=== PATIENT | female | born 1965 | race Caucasian/White ===

== ENCOUNTER 2024-07-02 08:02 | Outpatient (RCR) | payer OTHER, SELFPAY ==
[2024-07-02 08:11] VITALS: BMI 31.4
== END 2024-09-20 08:30 | disposition home or self-care (01) ==
LOC: ANHDMC 08:02
PROVIDERS: PCP Family Medicine; Visit Provider Family Medicine
DX: I10 Essential (primary) hypertension (principal); Z71.3 Dietary counseling and surveillance
CPT/HCPCS: 97802

== ENCOUNTER 2024-12-17 08:32 | Outpatient (CLI) | payer OTHER, SELFPAY ==
--- NOTE | 2024-12-17 09:00 | ECHO_ITS ---
Patient Info Name: Yuly Gonzalez Age: 59 years : 1965 Gender: Female Ht: 66 in Wt: 179 lbs BSA: 1.97 m2 HR: 97 bpm BP: 193 / 104 mmHg Technical Quality: Good Exam Date: 12/17/2024 9:03 AM Exam Location: Echo Lab Patient Status: Outpatient Admit Date: 12/17/2024 Staff Ordering Physician: Jovanna Huitron DO Retail Advertising Sales Manager: Iris Underwood RDCS Attending Provider: Jvoanna Huitron DO Referring Physician: Tomy MULLER; Exam Type: CA echo doppler color flow Study Info Indications R01.1 - Cardiac murmur, unspecified Complete two-dimensional, color flow and Doppler transthoracic echocardiogram is performed. Summary 1. Complete two-dimensional, color flow and Doppler transthoracic echocardiogram is performed. 2. Left ventricular chamber dimension is normal. 3. Left ventricular systolic function is hyperdynamic, estimated at >70%. 4. The left ventricular diastolic function is abnormal. 5. E/e' 10 is mildly elevated. 6. Right atrial chamber dimension is mildly enlarged. 7. There is trace tricuspid valve regurgitation. 8. Moderate pulmonary hypertension, estimated pulmonary arterial systolic pressure is 56 mmHg. 9. Dilated inferior vena cava with >50% collapse upon inspiration consistent with elevated right atrial pressure, 10 mmHg. Left Ventricle E/e' 10 is mildly elevated. Left ventricular chamber dimension is normal. Left ventricular systolic function is hyperdynamic, estimated at >70%. The left ventricular diastolic function is abnormal. Right Ventricle Right ventricular systolic function is normal and with normal TAPSE 2.6 cm. Right ventricular chamber dimension is normal. Left Atria Left atrial chamber dimension is normal. Right Atria Right atrial chamber dimension is mildly enlarged. Aortic Valve The aortic valve is trileaflet. There is no aortic valve stenosis. There is no aortic valve regurgitation. Pulmonic Valve There is no pulmonic regurgitation. Mitral Valve There is no mitral valve stenosis. There is no mitral valve regurgitation. Tricuspid Valve There is trace tricuspid valve regurgitation. Moderate pulmonary hypertension, estimated pulmonary arterial systolic pressure is 56 mmHg. Pericardium/Pleural There is no pericardial effusion. Inferior Vena Cava Dilated inferior vena cava with >50% collapse upon inspiration consistent with elevated right atrial pressure, 10 mmHg. Aorta The aortic root size at the sinus of Valsalva is normal. Left Ventricular Outflow Tract Name Value Normal LVOT 2D LVOT Diameter 1.8 cm LVOT Doppler LVOT Peak Gradient 10 mmHg LVOT Mean Gradient 6 mmHg LVOT VTI 33 cm LVOT VTI/AV VTI Ratio 0.9 LVOT Stroke Volume 85 ml LVOT CO 17.4 l/min LVOT CI 8.8 l/min/m2 Pulmonic Valve Name Value Normal PV Doppler PV Peak Gradient 6 mmHg Mitral Valve Name Value Normal MV Doppler MV Peak Gradient 11 mmHg MV Mean Gradient 5 mmHg MV Decel Weld 658 cm/s2 MV PHT 56 ms MV Area (PHT) 3.9 cm2 4.0-5.0 MV Area (Cont Eq VTI) 2.6 cm2 MV Diastolic Function MV E Peak Velocity 128 cm/s MV A Peak Velocity 102 cm/s MV E/A 1.3 MV Decel Time 194 ms MV Annular TDI MV E/e' (Septal) 9.4 <=8.0 MV E/e' (Lateral) 10.9 <=8.0 MV E/e' (Average) 10.1 Tricuspid Valve Name Value Normal TV Regurgitation Doppler TR Peak Velocity 341 cm/s TR Peak Gradient 46 mmHg Estimated PAP/RSVP RA Pressure 10 mmHg <=5 PA Systolic Pressure 56 mmHg <36 RV Systolic Pressure 56 mmHg <36 Aorta Name Value Normal Ascending Aorta Ao Root Diameter (MM) 2.8 cm Ao Root Diam Index (MM) 1.4 cm/m2 Aortic Valve Name Value Normal AV Doppler AV Peak Velocity 179 cm/s AV Peak Gradient 13 mmHg AV Mean Gradient 7 mmHg AV VTI 38 cm AV Area (Cont Eq VTI) 2.2 cm2 >=3.0 AV Area (Cont Eq Tre) 2.3 cm2 AV Regurgitation 2D LVOT Area 2.6 cm2 Ventricles Name Value Normal LV Dimensions 2D/MM IVS Diastolic Thickness (2D) 0.9 cm 0.6-1.0 LVID Diastole (2D) 4.3 cm 3.8-5.2 LVIW Diastolic Thickness (2D) 0.9 cm 0.6-0.9 LVID Systole (2D) 2.4 cm 2.2-3.5 LVOT Diameter 1.8 cm LV Mass (2D Cubed) 125.95 g 67.00-162.00 LV Mass Index (2D Cubed) 64 g/m2 43-95 Relative Wall Thickness (2D) 0.43 LV Fractional Shortening/Ejection Fraction 2D/MM LV Fractional Shortening (2D) 43 % 27-45 LV EF (2D Teichbernardinoz) 74 % 54-74 LV Diastolic Volume (4C MOD) 84 ml LV EF (4C MOD) 79 % LV Diastolic Volume (2C MOD) 80 ml LV EF (2C MOD) 81 % LV Diastolic Volume (BP MOD) 85 ml 46-106 LV Diastolic Volume Index (BP MOD) 43 ml/m2 29-61 LV Systolic Volume (BP MOD) 17 ml 14-42 LV Systolic Volume Index (BP MOD) 8 ml/m2 8-24 LV EF (BP MOD) 81 % 54-74 LV Diastolic Length (4C) 7.9 cm LV Systolic Length (4C) 5.7 cm LV Stroke Volume (4C MOD) 67 ml RV Dimensions 2D/MM RVID Diastole (2D) 4.3 cm 2.5-3.5 Atria Name Value Normal LA Dimensions LA Dimension (MM) 3.1 cm 2.7-3.8 LA Volume (4C A-L) 31 ml LA Volume (BP A-L) 44 ml RA Dimensions RA Area (4C) 18.2 cm2 <=18.0 Report Signatures
--- OUTSIDE RECORDS SUMMARY | 2024-12-17 09:04 | XMS_ITS | Continuity of Care Document ---
Author Organization Formerly [facility] Address [address] [address] Insurance Providers Payer Plan Claims Address Claims Phone Policy Number Group Number Relation Employer Guarantor Name Guarantor Guarantor Address Guarantor Phone Mirna torres [id number] Self Yuly Lisa [address], [place] [address] [facility] [id number] Self Yuly Gonzalez 1965 [facility] [address] [place] [address] Problems Condition ICD9 code ICD10 code SNOMED code Start Date End Date S tatus Encounter for screening for other metabolic disorders Z13.228 Results No Results Allergies, adverse reactions, alerts No known allergies and adverse reactions Medications No administered medications reported Vital Signs No vital signs reported Social History No smoking Hx information available
== END 2024-12-17 08:33 | disposition home or self-care (01) ==
LOC: ANHCARD 08:34
PROVIDERS: PCP Family Medicine; Visit Provider Family Medicine
DX: R01.1 Cardiac murmur, unspecified (principal); I27.20 Pulmonary hypertension, unspecified; I51.7 Cardiomegaly
CPT/HCPCS: 76775; 93306

== ENCOUNTER 2024-12-17 08:36 | Outpatient (CLI) | payer OTHER, SELFPAY ==
--- NOTE | ~2024-12-17 | US_ITS ---
EXAM: RENAL ULTRASOUND HISTORY: I10 - Essential (primary) hypertension COMPARISON: None FINDINGS: RIGHT KIDNEY: 10 x 5.3 x 4.5 cm. The parenchyma of the right kidney is unremarkable in echogenicity. No hydronephrosis or bulky renal calculi. LEFT KIDNEY: 11.3 x 4.7 x 4.7 cm No hydronephrosis. The parenchyma of the left kidney is unremarkable in echogenicity. Multiple 2 and 3 mm shadowing nonobstructing calcifications within the left kidney. BLADDER: The bladder is distended, and otherwise unremarkable. Bilateral ureteral jets are identified. IMPRESSION: No hydronephrosis. No findings to suggest the presence of medical renal disease. Multiple 2 and 3 mm calcifications within the left kidney, nonobstructing. Reviewed, dictated and finalized at location A.
== END 2024-12-17 08:37 | disposition home or self-care (01) ==
PROVIDERS: PCP Family Medicine; Visit Provider Family Medicine
DX: I10 Essential (primary) hypertension (principal); N28.89 Other specified disorders of kidney and ureter
CPT/HCPCS: 76775

== ENCOUNTER 2025-01-24 10:03 | Outpatient (CLI) | payer OTHER, SELFPAY ==
--- NOTE | ~2025-01-24 | US_ITS ---
EXAMINATION: US retroperitoneal duplex ltd DATE: 01/24/2025 17:17 INDICATION: Essential hypertension TECHNIQUE: Multiple grayscale, color Doppler, and pulsed Doppler images of the kidneys and renal carey harley were obtained. COMPARISON: None. FINDINGS: The aorta peak systolic velocity is 134 cm/s. The right renal artery peak systolic velocity is 118 cm /s in the proximal segment, 126 cm/s in the mid segment, and 85 cm/s in the distal segment. The left renal artery peak systolic velocity is 90 cm/s in the proximal segment, 86 cm/s in the mid segment, a nd 79 cm/s in the distal segment. IMPRESSION: 1. No Doppler evidence of renal artery stenosis. Reviewed, dictated and finalized at location B.
--- OUTSIDE RECORDS SUMMARY | 2025-01-24 11:24 | XMS_ITS | Continuity of Care Document ---
Author Organization [facility] Address [address] [address] Insurance Providers Payer Plan Claims Address Claims Phone Policy Number Group Number Relation Employer Guarantor Name Guarantor Guarantor Address Guarantor Phone Mirna torres [id number] Self Yuly Lisa [address], [place] [address] [facility] [id number] Self Yuly Gonzalez 1965 [facility] [address] [place] [address] Problems Condition ICD9 code ICD10 code SNOMED code Start Date End Date S tatus Encounter for screening for other metabolic disorders Z13.228 Results No Results Allergies, adverse reactions, alerts No known allergies and adverse reactions Medications No administered medications reported Vital Signs No vital signs reported Social History No smoking Hx information available
== END 2025-01-24 10:04 | disposition home or self-care (01) ==
PROVIDERS: PCP Family Medicine; Visit Provider Internal Medicine
DX: I10 Essential (primary) hypertension (principal)
CPT/HCPCS: 93976

== ENCOUNTER 2025-02-09 08:06 | Outpatient (CLI) | payer OTHER, SELFPAY ==
--- NOTE | 2025-03-08 09:01 | WPDSLEEPSTUD ---
Sleep Study Date of Study: 02/09/25 Ordering Provider: FANG Childs Interpreting Physician: Padmini Sherman DO Sleep Study Type: Polysomnogram Height: 1.68 m Weight: 77.111 kg Body Mass Index: 27.4 Neck Circumference (inches): 14.5 [place]: 3 Reason for Sleep Study Hypertension that is difficult to control Sleep History The patient is a 59-year-old female that had a sleep study ordered by the Pulmonary group for evaluation of sleep apnea. The patient denies awakening from sleep short of breath. She denies awakening at night with heartburn, belching or cough. She rarely snores and is rarely loud enough that others complain. She occasionally has trouble sleeping when she has a cold. She denies waking up gasping for air throughout the night. She denies having breathing problems at night observed by herself or others. She denies sweating excessively at night. She occasionally has heart palpitations or irregular heartbeats during the night. She denies falling asleep during the day and while driving. She denies sleep paralysis, cataplexy and hypnagogic/ hypnopompic hallucinations. She denies having trouble at school or work due to sleepiness. She denies feeling afraid of going to sleep. She rarely has nightmares. She rarely remembers her dreams. She occasionally has thoughts racing through her mind. She denies feeling sad or depressed. She occasionally has anxiety. She denies having muscular tension. She denies noticing parts of her body jerk. She denies kicking during. She denies having crawling and aching feelings in her legs and denies having leg pain during the night. She occasionally grinds her teeth during sleep and occasionally awakens with morning jaw pain. She denies being bothered by pain during the day and denies being awakened by pain during the night. She denies waking up feeling stiff in the morning. She denies waking up with sore or achy muscles. She denies waking up with pain in the neck, spine and other joints. She goes to bed between 10 to 10:30 p.m. on both weekdays and weekends. It takes her 15-60 minutes to fall asleep. She wakes up twice throughout the night to urinate and is able to fall back asleep within 1 hour. She wakes up between 1:24 a.m. on both weekdays and weekends. She typically gets 4-5 hours of sleep per night. She will stay in bed for 15 minutes her last after waking up in the morning. She currently lives with her and 2 adult children. She denies consuming any caffeinated beverages within 2 hours of bedtime. She denies engaging in physical exercise before bedtime. She will watch television before falling asleep. She denies taking naps in the afternoon or the evening. She consumes 1 caffeinated beverage a few times per week. She denies tobacco, alcohol and recreational drug use. [facility] Past Medical History Medical History Systolic murmur Mixed hyperlipidemia Surgical History Surgical History History of delivery 2002 Family History Family History Mother Ovarian cancer Father Diabetes mellitus Sibling Breast cancer Social History Social History Smoking status: Never smoker Alcohol intake: never Substance use: never Do You Feel Safe in your Home?: Yes Lack of Transportation: No Lack of Food: Never True Current Housing: I Have Housing Concerned About Future Housing: No Difficulty Paying Gas/Electric Bills: No Difficulty Paying for Meds: No Currently Unemployed: No Education: Bachelor's Degree Difficulty w/ Childcare or Family Care: No Spiritual care concerns: No Medications Home Medications ?Medication ?Instructions ?Recorded ?Confirmed ?Type atorvastatin 40 mg tablet See Rx Instructions .Route 09/23/24 12/17/24 Rx .COMPLEX #90 tabs azelastine 137 mcg (0.1 %) nasal 1 spray intranasal Q12H #30 mL 11/18/24 12/17/24 Rx spray eszopiclone 2 mg tablet (Lunesta) 2 mg PO ONCE #1 tablet 12/17/24 12/17/24 Rx amlodipine 10 mg tablet See Rx Instructions .Route 12/20/24 Rx .COMPLEX #90 tabs clonidine HCl 0.2 mg tablet 0.2 mg PO BID 30 days #60 tabs 02/14/25 Rx Sleep Procedure A full night polysomnogram using the [employer] multi-channel system recorded the standard physiologic parameters including EEG, EOG, submentalis EMG, anterior tibialis EMG, EKG, body position, nasal and oral airflow using nasal pressure sensor and thermistor.? Respiratory parameters of chest and abdominal movements were recorded with Respiratory Inductance Plethysmography belts. Oxygen saturation was recorded by pulse oximetry. Video monitoring was also performed. Sleep stages, periodic limb movements, and EEG arousals were scored in 30 second epochs according to the criteria of the AASM Scoring Manual. The Apnea-Hypopnea Index was calculated using [facility] guidelines for definition of hypopnea with 4% O2 desaturations while scoring respiratory events. Sleep Architecture The total recording time was 474.9 minutes.? The total sleep time was 358.5 minutes. Sleep latency was 10.0 minutes. REM latency was 140.0 minutes. Sleep efficiency was 75.5%. The patient had 35 awakenings for an awakening index of 5.9. Wake after sleep onset time was 106.5 minutes. The patient spent 27.5 minutes, 7.7% of total sleep time in Stage N1. The patient spent 235.5 minutes, 65.7% in Stage N2. The patient spent 44.0 minutes, 12.3% in Stage N3. The patient spent 51.5 minutes, 14.4% in Stage REM sleep. Respiratory Analysis The patient had 13 hypopneas for an overall Apnea Hypopnea Index of 2.2. The REM Apnea Hypopnea Index was 4.7. The NREM Apnea Hypopnea Index was 1.8. The patient had a Central Apnea Hypopnea Index of 0. There was no evidence of Pete-Rojas Respirations. Arousals There were 69 total arousals for an arousal index of 11.5. There were 55 spontaneous arousals for an index of 9.2. There were 1 arousals due to respiratory events for an index of 0.2. There were 3 arousals due to periodic limb movements for an index of 0.5.? There were 10 arousals due to isolated limb movements for an index of 1.7. Periodic Limb Movements The patient had 24 isolated limb movements with an index of 4.0. The patient had 4 periodic limb movements with an index of 0.7. Patient had a total of 28 limb movements with a total limb movement index of 4.7. Oximetry Data The patient had an average oxygen saturation of 93.8% in sleep with a minimum oxygen saturation of 89.0% and a maximum oxygen saturation of 98.0%. The patient had 18 oxygen desaturations that were 4% or greater resulting in an Oxygen Desaturation Index of 3.0.? The patient spent 0 minutes of total sleep time with an oxygen saturation below 88%. Snoring Profile There were occasional snores present throughout the study. Cardiac Profile The EKG showed normal sinus rhythm.?No arrhythmias or premature beats were seen. The patient had an average pulse rate of 48.9 bpm with a minimum pulse of rate of 42.0 bpm and a maximum pulse rate of 81.0 bpm.? EEG Profile No signs of seizure activity seen. Assessment and Plan Assessment and Plan (1) Snoring: Code(s): R06.83 - Snoring Status: Acute Assessment and Plan: The patient had an overall AHI of 2.2 with desaturation down to 89%. This is not consistent with sleep disordered breathing. She did have occasional snores throughout the night, but it wasn't continuous. Data The data obtained during this sleep study is adequate for interpretation. Certification This sleep study has been reviewed by a board certified sleep medicine physician.
[2025-03-08 11:35] VITALS: BMI 27.4
== END 2025-02-10 06:42 | disposition home or self-care (01) ==
LOC: ANHCSM 08:08
PROVIDERS: PCP Family Medicine; Visit Provider Physician Assistant
DX: G47.10 Hypersomnia, unspecified (principal); I10 Essential (primary) hypertension; R06.83 Snoring
CPT/HCPCS: 95810